=== PATIENT | female | born 1960 | race Caucasian/White ===

== ENCOUNTER → 2017-05-19 | Outpatient (CLI) | payer OTHER ==
[~2017-05-19] VITALS: Ht 175.3 cm; Wt 90.7 kg
[~2017-05-19] MED LIST: SYNTHROID150 MCG PO; VITAMIN B-121000 MCG PO; VITAMIN D3400 UNIT PO; ZPAK PO
[2017-05-19 09:21] LABS: HEMATOCRIT 49.5 % (37.0-47.0); HEMOGLOBIN 16.4 gm/dL (12.0-15.0); MCH 29.7 pg (26.0-34.0); MCHC 33.2 g/dL (28.0-37.0); MCV 89.6 fL (80.0-100.0); MPV 8.6 fl. (7.2-11.1); RBC 5.53 mil/uL (4.20-5.00); RDW-CV 13.9 % (10.5-14.5); WBC 18.4 thou/uL (4.0-11.0)
[2017-05-19 09:29] LABS: CREATININE 1.2 mg/dL (0.6-1.3); POTASSIUM 3.8 mmol/L (3.5-5.1)
[2017-05-19 09:33] LABS: ALBUMIN 4.7 g/dL (3.4-5.0); TOTAL PROTEIN 9.3 g/dL (6.4-8.2)
[2017-05-19 11:11] LABS: URINE BLOOD 1+ (Negative); URINE CLARITY SL CLOUDY; URINE COLOR DARK YELLOW; URINE GLUCOSE-RANDOM NEGATIVE (Negative); URINE LEUKOCYTES-REFLEX NEGATIVE (Negative); URINE NITRITE-REFLEX NEGATIVE (Negative); URINE PROTEIN 1+ (Negative); URINE SPECIFIC GRAVITY >= 1.030 (1.005-1.030); URINE UROBILINOGEN 0.2 E.U./dl (0.2-1.0)
[2017-05-19 11:14] LABS: ABSOLUTE BASOPHILS 0.1 thou/uL (0.0-0.2); ABSOLUTE EOSINOPHILS 0.1 thou/uL (0.0-0.7); ABSOLUTE LYMPHOCYTES 2.4 thou/uL (0.8-5.3); ABSOLUTE MONOCYTES 0.6 thou/uL (0.0-1.2); BASOPHILS 0.6 %; EOSINOPHILS 0.6 %; LYMPHOCYTES 13.1 %; MONOCYTES 3.3 %; NUCLEATED RBCS 0 /100WBC; POLYS 82.4 %
[2017-05-19 11:16] LABS: URINE KETONES 3+ (Negative); URINE REDUCING SUBSTANCE TRACE % (Negative)
[2017-05-19 11:16] LABS: ABSOLUTE NEUTROPHILS 15.2 thou/uL (1.6-8.1); HEMATOCRIT 49.5 % (37.0-47.0); HEMOGLOBIN 16.4 gm/dL (12.0-15.0); MCH 29.7 pg (26.0-34.0); MCHC 33.2 g/dL (28.0-37.0); MCV 89.6 fL (80.0-100.0); PLATELET COUNT* 252 thou/uL (150-400); RBC 5.53 mil/uL (4.20-5.00); RDW-CV 13.9 % (10.5-14.5); WBC 18.4 thou/uL (4.0-11.0)
[2017-05-19 11:17] LABS: ICTOTEST (BILI CONFIRMATORY) Negative (Negative); URINE BILIRUBIN NEGATIVE (Negative)
[2017-05-19 11:17] LABS: MPV 8.6 fl. (7.2-11.1)
[2017-05-19 11:20] LABS: CASTS None Seen /LPF (None Seen); MUCUS >6 Heavy strn/LPF (None Seen); SQUAMOUS 4-10 Moderate /LPF (0-3)
[2017-05-19 11:21] LABS: AMORPHOUS URATES Few /LPF (None Seen); BACTERIA-REFLEX 1-9 Few /HPF (None Seen); URINE RBC 0-2 Rare /HPF (0-2); URINE WBC-REFLEX 0-5 Rare /HPF (0-5)
--- NOTE | 2017-05-19 14:00 | EKG ---
[place] [address] ELECTROCARDIOGRAM REPORT Name: DENY CALI Room: [facility]#: [id number] Admission: 05/19/17 Attend Phys: Soledad Pelletier MD Discharge: Date of : 56 Report #: [id number] THIS REPORT FOR: //name// [facility] ED Test Date: 2017-05-19 Test Time: 11:11:08 Pat Name: DENY CALI Department: Room: Gender: System Developer Associate Manager: Antionette HURST : 1960 Requested By: Crystal Chavez Order Number: [id number] MD: Rufus Mccarthy Measurements Intervals [place] Rate: 102 P: 38 CA: 170 QRS: -8 QRSD: 90 T: 31 QT: 345 QTc: 450 Interpretive Statements Sinus tachycardia 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 05/19/17 1359 1111 1111 Rufus Mccarthy MD, FACC /EPI
[2017-05-19 14:47] VITALS: BP 145/91
== END ==
LOC: M.RAD 09:05 → M.ERS 09:05
PROVIDERS: Nurse Practitioner Family
DX: J18.9 Pneumonia, unspecified organism (principal); R10.9 Unspecified abdominal pain; E03.9 Hypothyroidism, unspecified